=== PATIENT | male | born 1940 | race Caucasian/White ===

== ENCOUNTER 2020-09-29 21:25 | Emergency (ER) | payer MEDICARE, MEDICAID, SELFPAY ==
[2020-09-29 21:52] VITALS: BP 122/66; PULSE 82; RESP 14; TEMP 36.7; O2SAT 97; BMI 21.2
--- NOTE | 2020-09-29 22:06 | ED_ITS ---
HPI - Male Genitourinary General: Chief complaint: Urogenital-Male Stated complaint: catheter put in a month ago, leaking now Time Seen by Provider: 09/29/20 21:58 Source: patient Mode of arrival: ambulatory Limitations: no limitations History of Present Illness: HPI Narrative: Patient comes in today for complaints of leaking catheter. Patient had a catheter placed 1 month ago for urinary retention. Patient started having problems with his catheter bag leaking. Patient appears well. Patient appears no acute distress. Patient reports back pain and being out of his pain medication. Patient denies any other medical issues. Patient states that he is recently moved to the area from the [facility]. Review of Systems General: Reports: 10 or more systems reviewed and unremarkable except in HPI and below Musc: Reports: back pain Physical Exam Const: COMMON NORMALS: no acute distress and patient oriented x3 GENERAL APPEARANCE: cooperative HENMT: COMMON NORMALS: normocephalic and Normal external nose present HEAD & SCALP: normal to inspection and normocephalic NOSE: Normal external nose present MOUTH: Normal oral and palatal mucosa present Eye: GENERAL EYE: appearance normal, both eyes and all related structures Neck/C-Spine: COMMON NORMALS: full ROM Chest: COMMONS NORMALS: normal inspection of the chest Resp: COMMON NORMALS: normal respiratory effort EFFORT & INSPECTION: Yes able to speak in complete sentences Cardio: COMMON NORMALS: regular rate and regular rhythm RATE: regular rate RHYTHM: regular rhythm GI: COMMON NORMALS: non-tender : COMMON NORMALS: Yes no CVA tenderness BLADDER/KIDNEY EXAM: Yes no CVA tenderness Back/Pelvis: COMMON NORMALS: no CVA tenderness OTHER: Lumbar paraspinous muscle tenderness. Extremity: COMMON NORMALS: normal to inspection Neuro: COMMON NORMALS: patient oriented x3 and moves all extremities Psych: COMMON NORMALS: mental status grossly normal and cooperative Skin: COMMON NORMALS: no rashes or lesions noted GENERAL SKIN EXAM: no rashes or lesions noted Course Vital Signs: Vital signs: Vital Signs Temperature 98.1 F 09/29/20 21:52 Pulse Rate 82 09/29/20 21:52 Respiratory Rate 14 09/29/20 21:52 Blood Pressure 122/66 09/29/20 21:52 Pulse Oximetry 97 09/29/20 21:52 MDM - Male MDM Narrative: Medical decision making narrative: Patient comes in for leaking of catheter. Patient has had to have catheter placed 1 month ago for urinary retention. Patient reports for last 2 to 3 days he has noticed leaking from the catheter. Patient appears well. Patient appears no acute distress. Patient denies any fever. Leblanc catheter was replaced and patient was recommended to follow-up with primary care for further treatment and evaluation regarding need for medication refills, for patient's chronic back pain. Patient reports understanding of care plan Discharge Plan Discharge Patient Disposition: Home Clinical Impression: Urinary retention Back pain Qualifiers: Back pain location: low back pain Chronicity: chronic Back pain laterality: unspecified Sciatica presence: unspecified whether sciatica present Qualified Code(s): M54.5 - Low back pain Condition: Stable Prescriptions: New hydrocodone-acetaminophen 5-325 mg tablet 1 tab PO TID PRN (Reason: pain) Qty: 10 RF: 0 Discharge Orders: Discharge ED (Routine); Ordered 09/29/20 Ordered By: Carl Gallo Discharge Diet: Usual diet Patient Instructions: Leblanc Catheter Placement and Care (ED) Activity Restrictions/Additional Instructions: Follow-up with primary care for further treatment. Drink plenty of fluids. Return to the emergency department for new concerns. Coding Level of Care Code ED Flotation Operator for Anil Norris
[2020-09-29] MEDS: HYDROcodone-acetaminophen 5-325 mg Tablet 1 TAB PO (22:14)
[2020-09-29 23:03] VITALS: BP 148/64; PULSE 65; RESP 16; TEMP 36.7; O2SAT 94
--- NOTE | 2020-10-02 11:02 | DCPLANNER ---
meat sales and storage manager had message to speak with patient about getting established with a primary care physician. meat sales and storage manager spoke with patient, he stated that he was going to go see who his sees in [facility] [place].
== END 2020-09-29 23:03 | disposition home or self-care (01) ==
PROVIDERS: Emergency Provider Nurse Practitioner Family
DX: R33.9 Retention of urine, unspecified (principal); M54.5 Low back pain
CPT/HCPCS: 12345; 51702; 99281; 99283